=== PATIENT | female | born 1960 | race Caucasian/White ===

== ENCOUNTER 2019-08-27 12:58 | Day surgery (SDC) | payer OTHER ==
[~2019-08-27] VITALS: Ht 160 cm; Wt 78.0 kg
[~2019-08-27 12:58] MED LIST: ALBU90OI; ALPR.5CR PO; ATOR20 PO; Advil200 M1; CARV25 PO; CORAL CALCIUM; CYAN100; FLAX; Hydrochlorothia25 MG PO; Multiple Vitam1 EAC1; Quinapril HCl40 MG; Selenium50 MCG
== END 2019-08-27 14:58 | disposition home or self-care (01) ==
LOC: ORSCSDS 12:58
PROVIDERS: Surgery
PROC: 0DJD8ZZ Inspection of Lower Intestinal Tract, Via Natural or Artificial Opening Endoscopic (ICD-10-PCS; principal; 2019-08-27 14:15)
DX: Z12.11 Encounter for screening for malignant neoplasm of colon (principal); Z86.010 Personal history of colon polyps; K64.8 Other hemorrhoids; E11.9 Type 2 diabetes mellitus without complications; I10 Essential (primary) hypertension; J45.909 Unspecified asthma, uncomplicated; E66.9 Obesity, unspecified; Z68.30 Body mass index [BMI] 30.0-30.9, adult; Z79.84 Long term (current) use of oral hypoglycemic drugs; Z79.899 Other long term (current) drug therapy
CPT/HCPCS: 82947; J2704; J7120

== ENCOUNTER → 2021-12-15 | Outpatient (CLI) | payer OTHER | LOC: LAB SHORT 10:06 → LAB 10:06 | DX: N39.0 Urinary tract infection, site not specified (principal) | CPT/HCPCS: 87086 ==

== ENCOUNTER → 2023-02-14 | Outpatient (CLI) | payer OTHER ==
[2023-02-14 08:49] LABS: Source, Urine Clean Catch
[2023-02-14 09:19] LABS: Bilirubin, Urine Neg (Neg); Blood, Urine 5+ (Neg); Glucose Qualitative, Urine Neg (Neg); Ketones, Urine Neg (Neg); Leukocyte Esterase, Urine 3+ (Neg); Nitrite, Urine Neg (Neg); Protein, Urine 2+ (Neg); Urobilinogen, Urine NORM (Normal)
[2023-02-14 09:24] LABS: Appearance, Urine Hazy (Clear); Color, Urine Yellow (P-Yellow)
[2023-02-14 09:27] LABS: White Blood Cells, Urine TNTC /hpf (0-5)
[2023-02-14 09:30] LABS: Bacteria Mod /hpf; Squamous Epithelial Cells Rare /hpf (Few)
[2023-02-14 09:31] LABS: Hyaline Casts 0-2 /lpf (0-2); Mucus Light (0-Heavy)
== END | disposition home or self-care (01) ==
LOC: LAB SHORT 08:47 → LAB 08:47
PROVIDERS: Internal Medicine
DX: R30.0 Dysuria (principal)
CPT/HCPCS: 81001; 87086

== ENCOUNTER → 2023-08-04 | Outpatient (CLI) | payer OTHER ==
[2023-08-04 10:58] LABS: Source, Urine Clean Catch
[2023-08-04 13:05] LABS: Appearance, Urine Clear (Clear); Bilirubin, Urine Neg (Neg); Blood, Urine Neg (Neg); Color, Urine Yellow (P-Yellow); Glucose Qualitative, Urine Neg (Neg); Ketones, Urine 1+ (Neg); Leukocyte Esterase, Urine 1+ (Neg); Nitrite, Urine Neg (Neg); Protein, Urine 2+ (Neg); Urobilinogen, Urine NORM (Normal)
[2023-08-04 13:16] LABS: Red Blood Cells, Urine 0-2 /hpf (0-2); Squamous Epithelial Cells Many /hpf (Few)
[2023-08-04 13:18] LABS: Bacteria Few /hpf
[2023-08-04 13:19] LABS: Amorphous Light (0-Heavy); Hyaline Casts 25-50 /lpf (0-2); Mucus Light (0-Heavy)
== END | disposition home or self-care (01) ==
LOC: LAB 10:54 → LAB SHORT 10:54
PROVIDERS: Internal Medicine
DX: R30.0 Dysuria (principal)
CPT/HCPCS: 81001; 87086

== ENCOUNTER 2024-09-24 08:21 | Day surgery (SDC) | payer OTHER ==
[~2024-09-24] VITALS: Ht 160 cm; Wt 74.0 kg
[2024-09-24] VITALS (16 sets, daily range): BP systolic 90–128; BP diastolic 60–77
[~2024-09-24 08:21] MED LIST changes: +Fosinopril Sodi40 MG PO; +GLIM2 PO; +K-Dur20 MEQ PO; +METF500 PO
[2024-09-24] MEDS ORDERED: TRULICITY3 MG/0.5 M INJ (08:54)
[2024-09-24] MEDS ORDERED: Ondansetron HCl 2 MG / ML 2ML Vial IV ONE (09:20)
--- NOTE | 2024-09-24 09:24 | NUR ---
Ambulatory in Day Surgery. History, Chart, Medications and Allergies reviewed before start of procedure. Lungs clear T/O to Auscultation. Patient confirms NPO status and agrees with scheduled surgery. Pre-Op teaching done. Pt verbalizes understanding. Patient States Post-Procedure ride home has been arranged.
--- NOTE | 2024-09-24 10:25 | NUR ---
09/24/24 1025 Reji Sanchez CONFIRMED AND REVIEWED H&P, MEDCICATIONS, ALLERGIES, MEDICAL HISTORY, RESPIRATORY HISTORY, VITAL SIGNS, 3-LEAD EKG, CONSENTS, AND PHYSICIAN ORDERS. PATIENT CONFIRMS NPO STATUS AND AGREES WITH SCHEDULED PROCEDURE. MONITOR INTACT WITH CONTINUOUS PULSE OXIMETRY, CAPNOGRAPHY, 3-LEAD EKG, INTERMITTENT BP. SUPPLEMENTAL O2 TO BE TITRATED THROUGHOUT PROCEDURE TO MAINTAIN O2 SATURATION ABOVE 90%. PATIENT DETERMINED TO BE ASA APPROPRIATE FOR PROPOFOL SEDATION PRIOR TO START OF PROCEDURE BY DR. ALFARO
== END 2024-09-24 23:00 | disposition home or self-care (01) ==
LOC: ORSCSDS 08:21 → ORSCMMR 08:23 → ORSCSDS 09:45
PROVIDERS: Surgery
PROC: 0DBN8ZX Excision of Sigmoid Colon, Via Natural or Artificial Opening Endoscopic, Diagnostic (ICD-10-PCS; principal; 2024-09-24 09:45)
DX: Z12.11 Encounter for screening for malignant neoplasm of colon (principal); Z86.0101 Personal history of adenomatous and serrated colon polyps; D12.5 Benign neoplasm of sigmoid colon; E11.9 Type 2 diabetes mellitus without complications; I10 Essential (primary) hypertension; J45.909 Unspecified asthma, uncomplicated; Z79.899 Other long term (current) drug therapy
CPT/HCPCS: 82947; 88305; J2405; J2704; J7120